=== PATIENT | male | born 1980 | race Caucasian/White ===

== ENCOUNTER 2016-09-04 21:18 | Emergency (ER) | payer OTHER ==
[2016-09-04 21:47] LABS: BASO % 0.5 % (0.2-1.2); EOS # 0.2 10_X3_uL (0.0-0.5); EOS % 2.8 % (0.8-7.0); GRAN # 4.7 10_X3_uL (1.8-5.4); GRAN % 57.6 % (34.0-67.9); HEMOGLOBIN 14.4 g/dL (13.7-17.5); LYMPH # 2.7 10_X3_uL (1.3-3.6); LYMPH % 33.5 % (21.8-53.1); MEAN CORPUSCULAR HEMOGLOBIN 33.3 pg (27.0-33.0); MEAN CORPUSCULAR VOLUME 92.6 fL (79-92); MEAN PLATELET VOLUME 10.1 fl (7.5-11.5); MONO # 0.5 10_X3_uL (0.3-0.8); MONO % 5.6 % (5.3-12.2); PLATELET COUNT 248 x10_3/uL (163-337); RED BLOOD COUNT 4.32 x10_6/uL (4.6-6.1); RED CELL DISTRIBUTION WIDTH 13.4 % (11.6-14.4); WHITE BLOOD COUNT 8.1 x10_3/uL (4.2-9.1)
[2016-09-04 22:01] LABS: ALBUMIN 4.4 gm/dL (3.4-5.0); ALKALINE PHOSPHATASE 73 U/L (50-136); ALT/SGPT 9 U/L (7.53-40.17); AST/SGOT 10 U/L (6.66-35.34); BILIRUBIN,TOTAL 0.27 mg/dL (0.0-1.0); BLOOD UREA NITROGEN 15 mg/dL (7-18); CALCIUM 8.9 mg/dL (8.7-10.7); CARBON DIOXIDE 24 mmol/L (21-32); CREATINE KINASE 51 U/L (35-232); CREATININE 0.7 mg/dL (0.6-1.3); GLUCOSE,RANDOM 144 mg/dL (70-99); POTASSIUM 3.5 mmol/L (3.5-5.1); SODIUM 141 mmol/L (136-145); TOTAL PROTEIN 6.7 gm/dL (6.4-8.2)
== END 2016-09-04 23:55 | disposition home or self-care (01) ==
LOC: ER 21:18
PROVIDERS: Emergency Medicine
DX: S29.011A Strain of muscle and tendon of front wall of thorax, initial encounter (principal); X50.0XXA Overexertion from strenuous movement or load, initial encounter; I10 Essential (primary) hypertension; Z87.01 Personal history of pneumonia (recurrent); Z98.890 Other specified postprocedural states; F17.210 Nicotine dependence, cigarettes, uncomplicated; Z88.8 Allergy status to other drugs, medicaments and biological substances; Z79.899 Other long term (current) drug therapy
CPT/HCPCS: 36415; 71250; 80053; 82550; 82553; 85025; 93005; 96374; 99070; 99284; 99285-25